=== PATIENT | female | born 1990 | race Caucasian/White ===

== ENCOUNTER 2019-08-28 10:14 | Emergency (ER) | payer MEDICAID, OTHER ==
[2019-08-28] MEDS: Aspirin 81 MG Tab.Chew PO ONE (10:20)
[2019-08-28] MEDS ORDERED: Sodium Chloride 0.9% 10 ML Syringe FLUSH PRN (10:31)
--- NOTE | 2019-08-28 10:37 | EDM.PDOC ---
ED HPI GENERAL MEDICAL PROBLEM - General Stated Complaint: CHEST AND LEFT ARM PAIN Time Seen by Provider: 08/28/19 10:30 Source of Information: Reports: Patient History Limitations: Reports: No Limitations - History of Present Illness INITIAL COMMENTS - FREE TEXT/NARRATIVE: Patient comes emergency department today from home with complaints of chest pain. This patient at approximately 630 this morning developed intermittent sharp shooting stabbing pain in her chest with constant pressure to her chest. She has no shortness of breath. She has had some nausea without vomiting. No weakness dizziness lightheadedness. She did tell the nurse that she had some numbness to her left face and arm although she denies this to me. She denies any paresthesias throughout her body of her upper or lower extremities as well no change in the functionality of her upper or lower extremities. No cough congestion. She does complain of shortness of breath with physical exertion although this is not uncommon for her. No fever no chills. No abdominal pain. Nausea without vomiting. No hematuria dysuria or urinary frequency. She does have a history of intermittent heartburn although she denies any complaints of that today. Denies any history of hypertension or high cholesterol or smoking. - Related Data Allergies Allergy/AdvReac Type Severity Reaction Status Date / Time No Known Allergies Allergy Verified 08/28/19 15:56 Home Meds: Home Meds Escitalopram Oxalate 20 mg PO DAILY 08/28/19 [History] Levonorgestrel/Ethin.estradiol [Falmina-28 Tablet] 1 each PO DAILY 08/28/19 [ History] busPIRone [Buspar] 5 mg PO BID 08/28/19 [History] ED ROS GENERAL - Review of Systems Review Of Systems: Comprehensive ROS is negative, except as noted in HPI. ED EXAM, GENERAL - Physical Exam Exam: See Below Exam Limited By: No Limitations General Appearance: Alert, WD/WN, No Apparent Distress, Obese (Morbidly) Eye Exam: Bilateral Eye: EOMI, PERRL Ears: Normal External Exam, Normal TMs Nose: Normal Inspection Throat/Mouth: Normal Inspection, Normal Lips, Normal Teeth, Normal Oropharynx, Normal Voice Head: Atraumatic, Normocephalic Neck: Normal Inspection, Supple, Non-Tender, Full Range of Motion Respiratory/Chest: No Respiratory Distress, Lungs Clear, Normal Breath Sounds, No Accessory Muscle Use, Chest Non-Tender Cardiovascular: Normal Peripheral Pulses, Regular Rate, Rhythm, No Edema, No JVD , No Murmur Peripheral Pulses: 2+: Radial (L), Radial (R), Posterior Tibial (L), Posterior Tibial (R), Dorsalis Pedis (L), Dorsalis Pedis (R) GI/Abdominal: Normal Bowel Sounds, Soft, Non-Tender (Female) Exam: Deferred Rectal (Female) Exam: Deferred Back Exam: Normal Inspection, Full Range of Motion Extremities: Normal Inspection, Normal Range of Motion, No Pedal Edema, Normal Capillary Refill Neurological: Alert, Oriented, Normal Cognition, No Motor/Sensory Deficits Psychiatric: Normal Affect, Normal Mood Skin Exam: Warm, Dry, Intact, Normal Color, No Rash EKG INTERPRETATION EKG Date: 08/28/19 Time: 10:32 Rhythm: NSR Rate (Beats/Min): 71 [place]: Normal P-Wave: Present QRS: Normal ST-T: Normal QT: Normal Course - Vital Signs Last Recorded V/S: Last Vital Signs Temp 36.7 C 08/28/19 12:00 Pulse 68 08/28/19 12:00 Resp 16 08/28/19 12:00 BP 132/87 08/28/19 12:00 Pulse Ox 98 08/28/19 12:00 - Orders/Labs/Meds Orders: Active Orders 24 hr Category Date Time Status EKG Documentation Completion [RC] STAT Care 08/28/19 10:31 Active Peripheral IV Insertion Adult [OM.PC] Stat Oth 08/28/19 10:31 Ordered Labs: Laboratory Tests 08/28/19 08/28/19 Range/Units 10:40 10:40 WBC 6.6 (4.0-10.0) x10^3/uL RBC 4.40 (4.00-5.50) x10^6/uL Hgb 12.6 (12.0-16.0) g/dL Hct 37.9 (33.0-47.0) % MCV 86.1 (78.0-93.0) fL MCH 28.6 (26.0-32.0) pg MCHC 33.2 (32.0-36.0) g/dL RDW Coeff of [place] 12.9 (10.0-15.0) % Plt Count 225 (130-400) x10^3/uL Neut % (Auto) 61.2 (50.0-80.0) % Lymph % (Auto) 30.9 (25.0-50.0) % [place] % (Auto) 6.2 (2.0-11.0) % Eos % (Auto) 1.4 (0.0-4.0) % Baso % (Auto) 0.3 (0.2-1.2) % Sodium 139 (136-145) mmol/L Potassium 4.0 (3.5-5.1) mmol/L Chloride 103 (98-107) mmol/L Carbon Dioxide 27 (21-32) mmol/L Anion Gap 13.0 (10-20) mmol/L BUN 11 (7-18) mg/dL Creatinine 0.9 (0.55-1.02) mg/dL Est Cr Clr Drug Dosing TNP Estimated GFR (MDRD) > 60 Glucose 87 (74-106) mg/dL Calcium 9.0 (8.5-10.1) mg/dL Corrected Calcium 9.56 (8.5-10.1) mg/dL Total Bilirubin 0.4 (0.2-1.0) mg/dL AST 17 (15-37) U/L ALT 26 (14-59) U/L Alkaline Phosphatase 64 (46-116) U/L Troponin I < 0.017 (<=0.056) ng/mL Total Protein 7.5 (6.4-8.2) g/dL Albumin 3.3 L (3.4-5.0) g/dL Globulin 4.2 Albumin/Globulin Ratio 0.79 Meds: Medications Discontinued Medications Generic Name Dose Route Start Last Admin Trade Name Freq PRN Reason Stop Dose Admin Al Hydroxide/Mg Hydroxide 30 ml 08/28/19 10:32 08/28/19 10:55 Gi Cocktail PO 08/28/19 10:33 30 ml ONETIME ONE Administration Aspirin 324 mg 08/28/19 10:32 08/28/19 10:20 Aspirin PO 08/28/19 10:33 324 mg ONETIME ONE Administration Sodium Chloride 10 ml 08/28/19 10:31 Saline Flush FLUSH ASDIRECTED PRN Keep Vein Open - Radiology Interpretation Free Text/Narrative:: CXR negative per radiology. - Re-Assessments/Exams Free Text/Narrative Re-Assessment/Exam: 08/28/19 Patient initially was given 324 of aspirin orally. GI cocktail without any change in her symptomology. Her EKG is unremarkable. Her laboratory evaluation is unremarkable she did not have any recurrence of the sharp shooting stabbing chest pain and the heaviness in her chest resolved while she was in the ER. She was really symptom free after the evaluation. Really unsure of what is causing her symptomology at this time. But I think that this is not cardiac related. We can try some Tylenol or ibuprofen anything new or worse she can return. Her troponin is negative after 4+ hours. She is comfortable with this plan and her questions are answered. Departure - Departure Time of Disposition: 12:11 Disposition: Home, Self-Care 01 Clinical Impression: Chest pain, non-cardiac Instructions: Nonspecific Chest Pain, Adult, [id number] Referrals: Laura Jarrell PA-C [Primary Care Provider] - Forms: ED Department Discharge Additional Instructions: Tylenol and or Ibuprofen as needed for pain. Rest today. Drinks lots of fluids. Return to the ED if new or worsening symptoms. Follow up with PCP in the next 3-5 days if not improving sooner if worse. Sepsis Event Note - Focused Exam Vital Signs: Vital Signs Temp Pulse Resp BP Pulse Ox 08/28/19 12:00 36.7 C 68 16 132/87 98 08/28/19 11:00 36.6 C 73 16 144/87 H 98 Date Exam was Performed: 08/28/19 Time Exam was Performed: 16:50 - My Orders Last 24 Hours: My Active Orders 08/28/19 10:31 EKG Documentation Completion [RC] STAT Peripheral IV Insertion Adult [OM.PC] Stat - Assessment/Plan Last 24 Hours: My Active Orders 08/28/19 10:31 EKG Documentation Completion [RC] STAT Peripheral IV Insertion Adult [OM.PC] Stat Assessment:: Non-cardiac chest pain.
[2019-08-28] MEDS: GI Cocktail Oral Solution 30 ML PO ONE (10:55)
[2019-08-28 11:08] LABS: CHLORIDE,CL 103 mmol/L (98-107); SODIUM,NA 139 mmol/L (136-145)
--- NOTE | 2019-08-28 11:17 | CR ---
[id number] RAD/RAD Chest PA And Lateral EXAM: RAD Chest PA And Lateral INDICATION: CHEST PAIN, SHORTNESS OF BREATH. COMPARISON: October 14, 2010. DISCUSSION: Cardiomediastinal silhouette is normal in size and contour. No infiltrate, effusion, pneumothorax, or edema. IMPRESSION: No acute cardiopulmonary abnormality. Kirt Gee DO 08/28/19 1115 Thank you for allowing us to participate in the care of your patient.
== END 2019-08-28 12:24 | disposition home or self-care (01) ==
LOC: VM.ED 10:14
DX: R07.89 Other chest pain (principal); Z79.899 Other long term (current) drug therapy
CPT/HCPCS: 71046; 80053; 84484; 85025; 93005; 99285-25; A9270-GY